=== PATIENT | male | born 1950 | race African-American/Black ===

== ENCOUNTER 2020-08-31 16:25 | Observation (INO) ==
[2020-08-31 18:33] LABS: Hematocrit 35.6 % (37.5-50.1); Hemoglobin 11.4 g/dL (12.9-16.9); Mean Corpuscular Hemoglobin 30.2 pg (28.0-33.3); Mean Corpuscular Volume 94.4 fL (83.0-100.0); Mean Platelet Volume 12.4 fL (9.4-12.4); Platelet Count 177 K/mcL (140-400); Red Blood Count 3.77 M/mcL (4.19-5.50); Red Cell Distribution Width 14.8 % (11.5-14.5); White Blood Count 7.2 K/mcL (4.3-11.1)
[2020-08-31 19:23] LABS: Bilirubin,Urine Negative (Negative); Blood,Urine Negative (Negative); Clarity,Urine Clear (Clear); Color,Urine Yellow (Yellow); Glucose,Urine (UA) Normal (Normal); Ketones,Urine Negative (Negative); Leukocyte Esterase,Urine Negative (Negative); Nitrite,Urine Negative (Negative); PH,Urine 5.5 pH Units (5.0-8.0); Protein,Urine Negative (Neg-Trace); Specific Gravity,Urine 1.015 (1.010-1.025); Urobilinogen,Urine Normal (Normal)
[2020-08-31 19:45] LABS: Albumin 4.1 g/dL (3.5-5.7); Albumin/Globulin Ratio 1.2 (1.1-2.2); Bilirubin,Direct 0.1 mg/dL (0.0-0.2); Bilirubin,Indirect 0.6 mg/dL (0.0-1.0); Bilirubin,Total 0.7 mg/dL (0.3-1.0); Globulin 3.3 g/dL (2.4-3.5); Potassium 5.8 mEq/L (3.5-5.1); Total Protein 7.4 g/dL (6.4-8.9)
[2020-08-31] MEDS ORDERED: 0.9 % Sodium Chloride 1,000 ML IVC ONE (21:12)
[2020-08-31] MEDS ORDERED: Acetaminophen 325 MG TABLET PO PRN (23:08)
[2020-08-31] MEDS ORDERED: Naloxone 0.4 MG/ML INJ IVP PRN (23:08)
[2020-08-31] MEDS ORDERED: Ondansetron 4 MG/2 ML VIAL IVP PRN (23:08)
[2020-08-31] MEDS ORDERED: 0.9 % Sodium Chloride 1,000 ML IVC SCH (23:15)
[2020-08-31] MEDS ORDERED: hydrOXYzine pamoate 25 MG CAPSULE PO PRN (23:31)
[2020-09-01 02:12] LABS: INR 1.6; Prothrombin Time 17.8 Seconds (9.4-12.1)
[2020-09-01 02:51] LABS: Folate > 22.3 ng/mL (3.0-16.0); Vitamin B12 365 pg/mL (250-1100)
[2020-09-01 07:05] LABS: Basophils % 0.5 %; Nucleated Red Blood Cells 0.5 /100 WBC (0); Red Blood Count 3.73 M/mcL (4.19-5.50)
[2020-09-01 07:07] LABS: Eosinophils # 0.3 K/mcL (0.0-0.6); Eosinophils % 4.8 %; Hematocrit 34.1 % (37.5-50.1); Hemoglobin 11.4 g/dL (12.9-16.9); Immature Granulocytes % 2.5 % (0-4); Immature Platelets 8.7 % (1.1-6.1); Lymphocytes # 1.8 K/mcL (0.6-4.6); Lymphocytes % 30.1 %; Mean Corpuscular HGB Conc 33.4 g/dL (31.6-35.5); Mean Corpuscular Hemoglobin 30.6 pg (28.0-33.3); Mean Corpuscular Volume 91.4 fL (83.0-100.0); Mean Platelet Volume 12.5 fL (9.4-12.4); Monocytes # 0.6 K/mcL (0.0-1.3); Monocytes % 9.1 %; Neutrophils # 3.2 K/mcL (1.6-8.9); Platelet Count 139 K/mcL (140-400); Red Cell Distribution Width 14.7 % (11.5-14.5)
[2020-09-01 07:28] LABS: BUN/Creatinine Ratio 19 (6-26); Blood Urea Nitrogen 26 mg/dL (8-23); Calcium 8.6 mg/dL (8.6-10.3); Carbon Dioxide 20 mEq/L (23-29); Chloride 110 mEq/L (98-107); Glucose 76 mg/dL (70-105); Magnesium 1.2 mg/dL (1.6-2.6); Osmolality,Calculated 286 (280-300); Phosphorous 3.3 mg/dL (2.7-4.5); Potassium 4.6 mEq/L (3.5-5.1); Sodium 136 mEq/L (136-145); eGFR For African Americans > 60 (> 60); eGFR For Non-African Americans 51 (> 60)
[2020-09-01 08:25] LABS: Platelet Estimate Normal (Normal)
[2020-09-01] MEDS ORDERED: RENAL VITE PO SCH (09:00)
[2020-09-01] MEDS: Aspirin Enteric Coated 81 MG Tablet PO SCH (09:15)
[2020-09-01] MEDS: Lactobacillus 1 EACH CAP.SPRINK PO SCH (09:15)
[2020-09-01] MEDS: Apixaban 5 MG TABLET PO SCH ×2 (09:15→21:19)
[2020-09-01] MEDS: Cholecalciferol (D-3) 1,000 UNIT (25MCG) TABLET PO SCH (09:15)
[2020-09-01] MEDS: Pregabalin 75 MG CAPSULE PO SCH ×2 (09:16→21:19)
[2020-09-02 05:26] LABS: Hematocrit 28.9 % (37.5-50.1); Hemoglobin 9.6 g/dL (12.9-16.9); Mean Corpuscular HGB Conc 33.2 g/dL (31.6-35.5); Mean Corpuscular Hemoglobin 30.2 pg (28.0-33.3); Mean Corpuscular Volume 90.9 fL (83.0-100.0); Mean Platelet Volume 11.1 fL (9.4-12.4); Platelet Count 152 K/mcL (140-400); Red Blood Count 3.18 M/mcL (4.19-5.50); Red Cell Distribution Width 14.2 % (11.5-14.5); White Blood Count 4.6 K/mcL (4.3-11.1)
[2020-09-02 05:40] LABS: BUN/Creatinine Ratio 15 (6-26); Blood Urea Nitrogen 19 mg/dL (8-23); Calcium 8.6 mg/dL (8.6-10.3); Carbon Dioxide 21 mEq/L (23-29); Chloride 110 mEq/L (98-107); Glucose 91 mg/dL (70-105); Magnesium 1.5 mg/dL (1.6-2.6); Osmolality,Calculated 286 (280-300); Potassium 4.4 mEq/L (3.5-5.1); Sodium 137 mEq/L (136-145); eGFR For African Americans > 60 (> 60); eGFR For Non-African Americans 57 (> 60)
[2020-09-02 07:39] VITALS: BP 119/68
[2020-09-02] MEDS ORDERED: Renal Vitamin 1 CAP CAPSULE PO SCH (09:00)
[2020-09-02] MEDS: Apixaban 5 MG TABLET PO SCH (09:09)
[2020-09-02] MEDS: Aspirin Enteric Coated 81 MG Tablet PO SCH (09:09)
[2020-09-02] MEDS: Cholecalciferol (D-3) 1,000 UNIT (25MCG) TABLET PO SCH (09:09)
[2020-09-02] MEDS: Pregabalin 75 MG CAPSULE PO SCH (09:10)
[2020-09-02] MEDS: Lactobacillus 1 EACH CAP.SPRINK PO SCH (09:10)
[2020-09-02 13:41] LABS: Influenza A PCR Negative (Negative); Influenza B PCR Negative (Negative); Resp. Syncytial Virus PCR Negative (Negative)
[2020-09-02 13:43] LABS: SARS-CoV-2 by PCR (In House) Negative (Negative)
== END 2020-09-02 15:20 | disposition other institution (70) ==
LOC: EMEROOARM 16:25 → 3NENU 16:25 → SUATTDRO 21:51 → 3NENU 22:52
PROVIDERS: ADMIT Internal Medicine; ATTEND Internal Medicine